=== PATIENT | male | born 1980 | race Caucasian/White ===

== ENCOUNTER 2018-06-03 01:18 | Emergency (ER) | payer MEDICAID ==
[~2018-06-03] VITALS: Ht 182.9 cm; Wt 76.0 kg
[2018-06-03 01:20] VITALS: BP 144/99
[2018-06-03] MEDS ORDERED: DIAZEPAM 5 MG TABLET ONE (01:48)
--- NOTE | 2018-06-03 01:50 | NUR ---
PT MEDICATED PER EMAR. PT RESTING IN BED WITH EYES CLOSED. WILL CONTINUE TO MONITOR.
[2018-06-03] MEDS ORDERED: DIAZEPAM 5 MG TABLET PO ONE (02:00)
== END 2018-06-03 03:14 | disposition home or self-care (01) ==
LOC: ED 03:11
DX: F41.1 Generalized anxiety disorder (principal); F32.9 Major depressive disorder, single episode, unspecified
CPT/HCPCS: 99284